=== PATIENT | female | born 1955 | race African-American/Black ===

== ENCOUNTER 2023-07-04 07:49 | Outpatient (REF) | payer MEDICARE, SELFPAY ==
--- NOTE | ~2023-07-04 | XR_ITS ---
EXAMINATION: XR WRIST, RIGHT XR HAND, RIGHT CLINICAL INFORMATION: Rheumatoid arthritis, unspecified COMPARISON: Same-day left hand and wrist TECHNIQUE: PA, lateral, and oblique views of the right wrist and PA, lateral, and oblique views of the right hand FINDINGS: RIGHT WRIST: The bones are intact. No fracture. Alignment is anatomic. Joint spaces are maintained. No erosions or soft tissue calcifications. RIGHT HAND: The bones are intact. No fracture. Alignment is anatomic. Joint spaces are maintained. No erosions or soft tissue calcifications. XR/XR hand wrist RT IMPRESSION: No bony abnormality.
--- NOTE | ~2023-07-04 | XR_ITS ---
EXAMINATION: XR KNEE, LEFT CLINICAL INFORMATION: Rheumatoid arthritis, unspecified COMPARISON: Right knee today AP left knee found combined and AP right knee for ordering provider for standing bilateral knees and radiologist protocols TECHNIQUE: 3 views of the left knee. FINDINGS: No fracture. Small joint effusion. Mild lateral patellar tilt. Mild narrowing of the medial and patellofemoral joint compartments. Associated small medial joint compartment marginal osteophytes. No abnormal soft tissue calcification. XR/XR knee LT 3V IMPRESSION: Mild osteoarthritis.
--- NOTE | ~2023-07-04 | XR_ITS ---
EXAMINATION: XR WRIST, LEFT XR HAND, LEFT CLINICAL INFORMATION: Rheumatoid arthritis, unspecified COMPARISON: None available. TECHNIQUE: PA, lateral, and oblique views of the left wrist and PA, lateral, and oblique views of the left hand. Dedicated navicular view. FINDINGS: LEFT WRIST: The bones are intact. No fracture. Alignment is anatomic. Joint spaces are maintained. No erosions or soft tissue calcifications. LEFT HAND: The bones are intact. No fracture. Alignment is anatomic. Joint spaces are maintained. No erosions or soft tissue calcifications. XR/XR hand wrist LT IMPRESSION: No bony abnormality.
--- NOTE | ~2023-07-04 | XR_ITS ---
EXAMINATION: XR FOOT, RIGHT CLINICAL INFORMATION: Return arthritis, unspecified COMPARISON: Same-day left foot TECHNIQUE: AP, lateral, and oblique views of the right foot. FINDINGS: The bones are intact. No fracture. Alignment is anatomic. Joint spaces are maintained. The second through fifth toes are flexed limiting evaluation. Question faint erosion at the lateral base of the proximal phalanx of the great toe. Small calcifications are seen at the insertion of the Achilles tendon. XR/XR foot RT min 3V IMPRESSION: Question of faint erosion at the lateral base of the proximal phalanx of the great toe.
--- NOTE | ~2023-07-04 | XR_ITS ---
EXAMINATION: XR FOOT, LEFT CLINICAL INFORMATION: Rheumatoid arthritis, unspecified COMPARISON: None available. TECHNIQUE: AP, lateral, and oblique views of the left foot. FINDINGS: The bones are intact. No fracture. Alignment is anatomic. Joint spaces are maintained. There are small erosion at the lateral and medial base of the proximal phalanx of the great toe. Differential diagnosis includes rheumatoid arthritis as well as gout. Small posterior plantar calcaneal spur is seen. There are a few calcifications at the insertion of the Achilles tendon. XR/XR foot LT min 3V IMPRESSION: Small erosion at the lateral and medial base of the proximal phalanx of the great toe. Differential diagnosis includes rheumatoid arthritis as well as gout.
--- NOTE | ~2023-07-04 | XR_ITS ---
EXAMINATION: XR KNEE, RIGHT CLINICAL INFORMATION: Rheumatoid arthritis, unspecified COMPARISON: None available. TECHNIQUE: Four views of the right knee. FINDINGS: No fracture. Small right knee joint effusion. Alignment is anatomic. Mild narrowing the medial knee joint compartment. A few arterial vascular calcifications are seen. XR/XR knee RT 4V IMPRESSION: 1. Mild osteoarthritis. 2. Small right knee joint effusion.
[2023-07-04 09:26] LABS: MANUAL DIFF FLAG NO
[2023-07-04 10:04] LABS: Basophils Percent Auto 0.3 % (0-2); Eosinophils Absolute Auto 0.2 X10*3/uL (0.0-0.4); Eosinophils Percent Auto 2.6 % (0-4); Hematocrit 33.3 % (37.0-47.0); Hemoglobin 10.8 g/dl (12.0-16.0); Imm Gran Abs Auto 0.01 X10*3/uL (0.00-0.03); Imm Gran Pct Auto 0.2 % (0.0-0.4); Lymphocytes Absolute Auto 2.4 X10*3/uL (1.2-4.9); Lymphocytes Percent Auto 38.8 % (20-40); Mean Corpuscular HGB Conc 32.4 g/dl (31.0-35.0); Mean Corpuscular Hemoglobin 33.4 pg (27.0-33.0); Mean Corpuscular Volume 103.1 fL (80.0-98.0); Mean Platelet Volume 10.7 fL (9.4-12.3); Monocytes Absolute Auto 0.4 X10*3/uL (0.1-1.2); Monocytes Percent Auto 6.4 % (2-11); Neutrophils Absolute Auto 3.1 x10*3/uL (2.0-8.3); Neutrophils Percent Auto 51.7 % (45-73); Platelet Count 274 X10*3/uL (160-400); Red Blood Count 3.23 X10*6/uL (4.20-5.50); Red Cell Distribution Width 14.8 % (11.0-16.0); White Blood Count 6.1 X10*3/uL (4.8-10.8)
[2023-07-04 10:48] LABS: Rheumatoid Factor < 13.0 IU/mL (<15.0)
[2023-07-04 10:49] LABS: Erythrocyte Sedimentation Rate 50 MM/HR (0-20)
[2023-07-04 11:02] LABS: Alanine Aminotransferase 13 U/L (0-31); Albumin Level 4.2 g/dL (3.5-5.0); Alkaline Phosphatase 95 U/L (39-117); Anion Gap 14 (12-20); Aspartate Amino Transferase 31 U/L (5-31); Bilirubin Total 0.9 mg/dL (0.0-1.0); Blood Urea Nitrogen 30 mg/dL (9-16); C Reactive Protein 1.24 mg/dL (< or = 0.50); Calcium 10.2 mg/dL (8.4-10.2); Carbon Dioxide 25 mmol/L (22-29); Chloride 105 mmol/L (96-108); Estimated Glomerular Filt Rate 24; Glucose Random 106 mg/dL (60-115); Potassium 5.5 mmol/L (3.3-5.1); Sodium 138 mmol/L (135-145); Total Protein 7.8 g/dL (6.5-8.0)
[2023-07-04 11:17] LABS: HBc Num1 0.16 S/CO (0.00-0.79); HBsAGNum1 0.35 S/CO (0.00-0.99); Hepatitis A Antibody IgM 0.33 Index (0-0.79); Hepatitis B Core Antibody Nonreactive (Nonreactive); Hepatitis B Surface Antigen Negative (Negative); ~Hepatitis A Antibody IgM Nonreactive (Nonreactive); ~Hepatitis B Surface Antibody NONREACTIVE (Nonreactive); ~Hepatitis C Antibody Nonreactive (Nonreactive)
[2023-07-05 10:58] LABS: Prot Elec - Alpha1 0.3 g/dL (0.2-0.3); Prot Elec - Alpha2 0.8 g/dL (0.5-0.9); Prot Elec - Beta 1 0.4 g/dL (0.4-0.6); Prot Elec - Beta 2 0.5 g/dL (0.2-0.5); Prot Elec - Gamma 1.3 g/dL (0.8-1.7); Prot Elec - Total Protein 7.3 g/dL (6.1-8.1)
[2023-07-05 12:18] LABS: Cyclic Citrullinated Peptide <16 UNITS
[2023-07-06 03:54] LABS: IgA 156 mg/dL (70-320); IgG 1550 mg/dL (600-1540); IgM 78 mg/dL (50-300)
== END 2023-07-04 07:50 | disposition home or self-care (01) ==
LOC: HO.LAB 07:49
PROVIDERS: PCP Internal Medicine; Visit Provider Student in an Organized Health Care Education/Training Program
DX: Z11.59 Encounter for screening for other viral diseases (principal); M06.9 Rheumatoid arthritis, unspecified; M25.50 Pain in unspecified joint; Z72.89 Other problems related to lifestyle
CPT/HCPCS: 36415; 73110; 73130; 73562; 73564; 73630; 80053; 82784; 84165; 85025; 85652; 86140; 86200; 86334; 86431; 86704; 86706; 86709; 86803; 87340; 99202

== ENCOUNTER 2023-07-04 07:49 | Outpatient (AMB) | payer MEDICARE, SELFPAY ==
--- NOTE | 2023-07-04 07:50 | MHC.OFFVIS ---
Intake Vital Signs 07/04/23 07:51 Height 5 ft 5.5 in Weight 246 lb 4.101 oz BMI 40.4 BP 184/72 H Blood Pressure Location Lt brachial Position Sitting Pulse 100 Pulse Source Pulse Oximeter Temp 97 F Temp Source Skin Pulse Oximetry (%) 98 Oxygen Delivery Method Room Air Comment Has not taken BP med today Intake Visit Reasons: djd and fibromyalgia Intake Note: New patient here for DJD and fibromyalgia. No prior rheumatology visit. 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 Accompanied by: Self / Same As Patient Allergies Seasonal Allergies Allergy (Unknown, Verified 07/04/23 07:58) Unknown iv contrast Allergy (Unknown, Uncoded 07/04/23 07:58) unknown Medication List - Last Reconciled 07/04/23 by Omar Horner MD aspirin (Adult Low Dose Aspirin) 81 mg PO DAILY atorvastatin 40 mg PO DAILY calcitriol 0.25 mcg PO Q OTHER DAY cholecalciferol (vitamin D3) 50 mcg PO DAILY clobetasol 0.05% 1 appl topical DAILY docusate sodium 100 mg PO BID estradiol 0.01%(0.1mg/gram) 0.5 appful vaginal .M-W- F fluticasone propionate 50 mcg/actuation (Allergy Relief (fluticasone)) 1 spray intranasal DAILY furosemide 20 mg PO DAILY glipizide 5 mg PO DAILY loratadine 10 mg PO DAILY losartan 100 mg PO DAILY multivitamin 1 tab PO DAILY nifedipine ER 60 mg PO DAILY pantoprazole 20 mg PO DAILY psyllium husk (Metamucil) 1 tbsp PO DAILY semaglutide (Rybelsus) 7 mg PO DAILY HPI HPI Comments History of Present Illness Details This is a 68-year-old female who presents for evaluation of multiple joint pain. The condition started over the last 2 years. She states that she has had left knee pain for 2 years. Worse with walking. She received the cortisone injection in the left knee 2 years ago which lasted a few months. She is also complaining that over the last 2 years she has been getting intermittent locking of her fingers, mostly in the right hand. She has morning stiffness of her hands and feet lasting 5-10 minutes. She has tingling and burning sensation of her legs, usually worse at night. She takes Tylenol 2 to 3 times a day when needed. She is unaware of any family history of autoimmune rheumatic disease [facility] Medical History (Updated 07/04/23 @ 08:49 by Omar Horner MD) Allergic rhinitis CKD (chronic kidney disease) Diabetes Hx of low back pain Hyperparathyroidism Hypertension Iron deficiency anemia Lichen sclerosus Nuclear sclerosis ROSEANNA (obstructive sleep apnea) Preglaucoma Squamous cell carcinoma of vulva Vitamin D deficiency Vitiligo Vulvar atrophy Surgical History History of surgery Hx of tonsillectomy Hx of tubal ligation Family History Mother No problems noted. Father No problems noted. Social History Household Members: Spouse Alcohol intake: current Alcohol intake frequency: former alcohol drinker Patient Tobacco Use Status: Never used Tobacco Current occupational status: retired Female Reproductive History Menstrual Total pregnancies: 5 Ab induced: 3 Review of Systems Const Reports fatigue Eyes Reports dry eyes and Reports itchy eyes ENT Reports dry mouth Card Reports dyspnea Resp Reports cough and Reports dyspnea GI Reports constipation and Reports nausea Musc Reports arthralgias and Reports stiffness Skin/Breast Reports rash and Reports unusual bruising Endo Reports fatigue Aller/Immun Reports itchy eyes Physical Exam Vital Signs: Last Vital Signs Temp 97 F 07/04/23 07:51 Pulse 100 07/04/23 07:51 BP 184/72 H 07/04/23 07:51 Pulse Ox 98 07/04/23 07:51 Oxygen Delivery Method Room Air 07/04/23 07:51 BMI result Body Mass Index 40.4 Const General: cooperative, healthy appearing and comfortable Nutritional Appearance: obese morbidly obese Orientation/consciousness: patient oriented x3 Limitations: no limitations HEENT Head: Yes normocephalic and Yes atraumatic Mouth: moist mucous membranes Resp Effort & Inspection: normal respiratory effort and able to speak in complete sentences Auscultation: clear to auscultation bilaterally Skin General skin exam: no rashes or lesions noted Neuro General: patient oriented x3 Extrem Other: No swollen or tender joints in both hands and wrists and no pain with full flexion and extension, no triggering of any of her fingers Normal range of motion of both elbows without pain, slightly painful shoulders with shoulder abduction Normal nailfold capillaroscopy Left knee pain with full flexion Bilateral ankle tenderness to palpation without warmth or swelling. (tenderness is more superficial, in the skin) Bilateral 1st MTP tenderness, bunions bilaterally Negative MTP squeeze test Proximal muscle strength 5/5 in all 4 extremities Assessment & Plan Assessment & Plan (1) Polyarthralgia: Code(s): M25.50 - Pain in unspecified joint Plan: This is a 68-year-old female who is referred for evaluation of multiple joint pain. Over the last 1-2 years patient gets intermittent locking of her fingers, mostly in the right hands, she has painful burning sensation of her legs at night. Will order comprehensive serology to screen for underlying autoimmune rheumatic disease. Check x-rays of involved joints Plan I spent 47 minutes reviewing patient's chart, evaluating patient, ordering diagnostic workup, counseling patient and documenting in the chart Orders: Orders XR foot LT min 3V Today M06.9 - Rheumatoid arthritis, unspecified XR foot RT min 3V Today M06.9 - Rheumatoid arthritis, unspecified XR hand wrist LT Today M06.9 - Rheumatoid arthritis, unspecified XR hand wrist RT Today M06.9 - Rheumatoid arthritis, unspecified XR knee LT 3V Today M06.9 - Rheumatoid arthritis, unspecified XR knee RT 3V Today M06.9 - Rheumatoid arthritis, unspecified XR knee standing BI Today M06.9 - Rheumatoid arthritis, unspecified Cyclic Citrullinated Peptide Today M06.9 - Rheumatoid arthritis, unspecified Comprehensive Met. Panel Today M06.9 - Rheumatoid arthritis, unspecified C Reactive Protein Today M06.9 - Rheumatoid arthritis, unspecified Rheumatoid Factor Today M06.9 - Rheumatoid arthritis, unspecified Complete Blood Count Auto Diff Today M06.9 - Rheumatoid arthritis, unspecified Erythrocyte Sedimentation Rate Today M06.9 - Rheumatoid arthritis, unspecified Immunofixation Pnl, Serum Today M06.9 - Rheumatoid arthritis, unspecified Protein Electrophoresis, Serum Today M06.9 - Rheumatoid arthritis, unspecified Hepatitis A,B,C Profile Today Z11.59 - Encounter for screening for other viral diseases Coding Level of Care Code New Pt Level 4 (77097) Diagnoses Polyarthralgia M25.50
[2023-07-04 07:51] VITALS: BP 184/72; PULSE 100; TEMP 36.1; O2SAT 98; BMI 40.4
== END 2023-07-04 08:52 | disposition home or self-care (01) ==
PROVIDERS: PCP Internal Medicine; Visit Provider Student in an Organized Health Care Education/Training Program
DX: M25.50 Pain in unspecified joint (principal)
CPT/HCPCS: 99204

== ENCOUNTER 2023-09-04 07:57 | Outpatient (AMB) | payer MEDICARE, SELFPAY ==
--- NOTE | 2023-09-04 07:58 | A.OFFVIS_ITS ---
Intake Vital Signs 09/04/23 07:59 Height 5 ft 5.5 in Weight 243 lb 6.245 oz BMI 39.9 BP 124/66 Blood Pressure Location Rt brachial Position Sitting Pulse 77 Pulse Source Pulse Oximeter Temp 97.4 F Temp Source Skin Pulse Oximetry (%) 99 Intake Visit Reasons: OA Intake Note: Patient presents today to follow up on OA. Last seen 07/04/23. Labs- done XR's- feet, hands, and knees done. Standing knee not done. Pharmacogeneticist Required: No Accompanied by: Self / Same As Patient Allergies Seasonal Allergies Allergy (Unknown, Verified 09/04/23 08:01) Unknown iv contrast Allergy (Unknown, Uncoded 09/04/23 08:01) unknown Medication List - Last Reconciled 09/04/23 by Omar Horner MD aspirin (Adult Low Dose Aspirin) 81 mg PO DAILY atorvastatin 40 mg PO DAILY calcitriol 0.25 mcg PO Q OTHER DAY cholecalciferol (vitamin D3) 125 mcg PO QWEEK clobetasol 0.05% 1 appl topical DAILY docusate sodium 100 mg PO BID estradiol 0.01%(0.1mg/gram) 0.5 appful vaginal .M-W- F fluticasone propionate 50 mcg/actuation (Allergy Relief (fluticasone)) 1 spray intranasal DAILY furosemide 20 mg PO DAILY glipizide 5 mg PO DAILY loratadine 10 mg PO DAILY losartan 100 mg PO DAILY multivitamin 1 tab PO DAILY nifedipine ER 60 mg PO DAILY pantoprazole 20 mg PO DAILY psyllium husk (Metamucil) 1 tbsp PO DAILY semaglutide (Rybelsus) 7 mg PO DAILY HPI HPI Comments History of Present Illness Details Patient returns for follow-up after completion of her diagnostic workup. Continues to feel about the same. Numbness in her hands and feet. 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 Initial history: This is a 68-year-old female who presents for evaluation of multiple joint pain. The condition started over the last 2 years. She states that she has had left knee pain for 2 years. Worse with walking. She received the cortisone injection in the left knee 2 years ago which lasted a few months. She is also complaining that over the last 2 years she has been getting intermittent locking of her fingers, mostly in the right hand. She has morning stiffness of her hands and feet lasting 5-10 minutes. She has tingling and burning sensation of her legs, usually worse at night. She takes Tylenol 2 to 3 times a day when needed. She is unaware of any family history of autoimmune rheumatic disease [facility] Medical History Squamous cell carcinoma of vulva Allergic rhinitis Vitiligo Hx of low back pain Hypertension Iron deficiency anemia Vitamin D deficiency ROSEANNA (obstructive sleep apnea) CKD (chronic kidney disease) Vulvar atrophy Lichen sclerosus Hyperparathyroidism Preglaucoma Nuclear sclerosis Diabetes Surgical History History of surgery Hx of tubal ligation Hx of tonsillectomy Family History Mother No problems noted. Father No problems noted. Social History Household Members: Spouse Alcohol intake: current Alcohol intake frequency: former alcohol drinker Patient Tobacco Use Status: Never used Tobacco Current occupational status: retired Review of Systems Resp Reports cough Musc Reports arthralgias and Reports numbness Skin/Breast Reports rash and Reports unusual bruising Neuro Reports numbness Physical Exam Vital Signs: Last Vital Signs Temp 97.4 F 09/04/23 07:59 Pulse 77 09/04/23 07:59 BP 124/66 09/04/23 07:59 Pulse Ox 99 09/04/23 07:59 BMI result Body Mass Index 39.9 Const General: cooperative, healthy appearing and comfortable Nutritional Appearance: obese morbidly obese Orientation/consciousness: patient oriented x3 Limitations: no limitations HEENT Head: Yes normocephalic and Yes atraumatic Resp Effort & Inspection: normal respiratory effort and able to speak in complete sentences Skin General skin exam: no rashes or lesions noted Neuro General: patient oriented x3 Extrem Other: No swollen or tender joints in both hands and wrists and no pain with full flexion and extension, no triggering of any of her fingers Normal range of motion of both elbows without pain, slightly painful shoulders with shoulder abduction Normal nailfold capillaroscopy Left knee pain with full flexion Bilateral ankle tenderness to palpation without warmth or swelling. (tenderness is more superficial, in the skin) Bilateral 1st MTP tenderness, bunions bilaterally Negative MTP squeeze test Proximal muscle strength 5/5 in all 4 extremities Assessment & Plan Assessment & Plan (1) Polyarthralgia: Code(s): M25.50 - Pain in unspecified joint Plan: This is a 68-year-old female who is referred for evaluation of multiple joint pain. Over the last 1-2 years patient gets intermittent locking of her fingers, mostly in the right hands, she has painful burning sensation of her legs at night. Comprehensive serology for autoimmune rheumatic disease is negative. X- rays of hands, knees and feet reviewed by me. I do not see any evidence of an autoimmune rheumatic disease. Clinical picture more consistent with generalized osteoarthritis. I suggested occupational therapy to strengthen her hands. Patient was not interested. Advised patient to get a squeeze ball. (2) Numbness and tingling in both hands: Code(s): R20.0 - Anesthesia of skin; R20.2 - Paresthesia of skin Plan: Discuss with PCP, consider a nerve conduction study/EMG (3) Hyperkalemia: Code(s): E87.5 - Hyperkalemia Plan: Patient follows up regularly with a poultry offal icer, mentions that her meds were adjusted by her poultry offal icer 2 weeks ago Plan I spent 27 minutes reviewing patient's chart, evaluating patient, counseling patient and documenting in the chart Coding Level of Care Code Est Pt Level 4 (10628) Diagnoses Polyarthralgia M25.50 Numbness and tingling in both hands R20.0; R20.2 Hyperkalemia E87.5
[2023-09-04 07:59] VITALS: BP 124/66; PULSE 77; TEMP 36.3; O2SAT 99; BMI 39.9
== END 2023-09-04 08:23 | disposition home or self-care (01) ==
PROVIDERS: PCP Internal Medicine; Visit Provider Student in an Organized Health Care Education/Training Program
DX: M25.50 Pain in unspecified joint (principal); R20.0 Anesthesia of skin; R20.2 Paresthesia of skin; E87.5 Hyperkalemia
CPT/HCPCS: 99214

== ENCOUNTER → 2023-09-04 07:57 | Outpatient (BNVA) | payer MEDICARE, SELFPAY | PROVIDERS: PCP Internal Medicine; Visit Provider Student in an Organized Health Care Education/Training Program | DX: M25.50 Pain in unspecified joint (principal); R20.0 Anesthesia of skin; R20.2 Paresthesia of skin; E87.5 Hyperkalemia | CPT/HCPCS: 99212 ==